=== PATIENT | female | born 1965 | race Caucasian/White ===

== ENCOUNTER → 2016-11-12 | Outpatient (CLI) | payer OTHER ==
[~2016-11-12] MED LIST: CIPRO 500MG TA500 MG PO; ELAVIL100 MG PO; LOPRESSOR 550 MG/TAB PO; LORTAB 5/500 501 TAB PO; NIFEDIPINE ER30 MG PO; NORCO 325 MG-101 TAB PO; NORVASC 10MG10 MG PO; PLAQUENIL 200M200 MG PO; PRAVACHOL 40MG40 MG PO; PREDNISONE 5MG5 MG PO; PRINIVIL20 MG PO; PROCARDIA XL90 MG PO; PYRIDIUM200 M1 PO; ULTRAM 50MG TAB50 MG PO
== END ==
LOC: MC.RAD 13:28
DX: N64.4 Mastodynia (principal)

== ENCOUNTER 2017-03-30 15:26 | Emergency (ER) | payer SELFPAY ==
[~2017-03-30] VITALS: Ht 139.7 cm; Wt 51.8 kg
[2017-03-30 15:28] VITALS: TEMP 99.8
[2017-03-30 16:20] LABS: BASO # 0.1 (0.0-0.2); BASO % 0.4 % (0.0-2.0); EOS # 0.1 (0.0-0.7); EOS % 0.5 % (0-4.0); GRAN # 8.8 (1.4-6.5); GRAN % 72.1 % (42.2-75.2); HEMATOCRIT 38.5 % (37.0-47.0); HEMOGLOBIN 13.1 g/dl (12.5-16.0); LYMPH # 1.9 (1.2-3.4); MEAN CELL VOLUME 91 fl (80.0-100.0); MEAN CORPUSCULAR HEMOGLOBIN 31 pg (27.0-31.0); MEAN CORPUSCULAR HGB CONC 34 g/dl (33.0-37.0); MEAN PLATELET VOLUME 9.5 fl (7.4-10.4); MONO # 1.3 (0.1-0.6); MONO % 10.6 % (1.7-9.3); PLATELET COUNT 235 K/mm3 (130-400); RED BLOOD COUNT 4.23 M/mm3 (4.10-5.30); REDCELL DISTRIBUTION WIDTH-CV 14.6 % (11.5-14.5)
[2017-03-30 16:42] LABS: ALANINE AMINOTRANSFERASE 17 U/L (9-52); ALKALINE PHOSPHATASE 94 U/L (50-136); ANION GAP 9 mmol/L (7-16); AST,SGOT 25 U/L (15-37); BILIRUBIN,TOTAL 0.7 mg/dL (0.0-1.0); BLOOD UREA NITROGEN 13 mg/dL (7-17); CALCIUM 8.8 mg/dL (8.4-10.2); CARBON DIOXIDE 23 mmol/L (22-30); CHLORIDE 105 mmol/L (98-107); CREATININE, serum 0.69 mg/dL (0.52-1.25); GLUCOSE 104 mg/dL (74-106); LIPASE 41 U/L (23-300); POTASSIUM 3.5 mmol/L (3.4-5.0); SODIUM 136 mmol/L (137-145)
[2017-03-30 16:51] LABS: INR 1.2 (0.8-3.0); PROTHROMBIN TIME 13.9 SECONDS (9.7-12.8); TROPONIN-I < 0.012 ng/mL (0.000-0.034)
[2017-03-30 16:53] LABS: PARTIAL THROMBOPLASTIN TIME 31.5 SECONDS (26.0-37.0)
[2017-03-30] MEDS ORDERED: PRINIVIL40 MG PO (16:54)
[2017-03-30 16:55] LABS: C-REACTIVE PROTEIN 16.5 mg/dL (0.0-0.9)
[2017-03-30] MEDS ORDERED: MS CONTIN 330 MG/TAB PO (16:55)
[2017-03-30] MEDS ORDERED: PROCARDIA XL 6060 MG PO (16:57)
[2017-03-30] MEDS ORDERED: PLAQUENIL 200M200 MG PO (16:58)
[2017-03-30] MEDS ORDERED: SYNTHROID 0.0.025 MG PO (16:58)
[2017-03-30] MEDS ORDERED: AMITRIPTYLINE H50 M1 PO (16:59)
[2017-03-30] MEDS ORDERED: PREDNISONE 5MG5 MG PO (16:59)
[2017-03-30] MEDS ORDERED: LEVAQUIN 5500 MG/TA1 PO (17:59)
[2017-03-30] MEDS ORDERED: PROTONIX 40MG T40 MG PO (17:59)
[2017-03-30 18:35] VITALS: BP 108/59; PULSE 109
== END 2017-03-30 19:00 | disposition home or self-care (01) ==
LOC: COL.ER 15:26
PROVIDERS: Emergency Medicine
DX: J18.9 Pneumonia, unspecified organism (principal); K44.9 Diaphragmatic hernia without obstruction or gangrene; K21.9 Gastro-esophageal reflux disease without esophagitis; E11.9 Type 2 diabetes mellitus without complications; I10 Essential (primary) hypertension; F17.210 Nicotine dependence, cigarettes, uncomplicated; Z87.39 Personal history of other diseases of the musculoskeletal system and connective tissue; Z79.52 Long term (current) use of systemic steroids
CPT/HCPCS: J1720; J2270; J2405; J7030; Q9967

== ENCOUNTER → 2017-07-22 | Outpatient (CLI) | payer SELFPAY ==
[~2017-07-22] MED LIST changes: +AMITRIPTYLINE H50 M1 PO; +LEVAQUIN 5500 MG/TA1 PO; +MS CONTIN 330 MG/TAB PO; +PRINIVIL40 MG PO; +PROCARDIA XL 6060 MG PO; +PROTONIX 40MG T40 MG PO; +SYNTHROID 0.0.025 MG PO
[2017-07-22 15:17] LABS: COLLECTION METHOD CLEAN CATCH
[2017-07-22 15:28] LABS: BASO # 0.1 (0.0-0.2); BASO % 0.6 % (0.0-2.0); EOS # 0.2 (0.0-0.7); EOS % 1.9 % (0-4.0); GRAN # 4.7 (1.4-6.5); HEMATOCRIT 40.7 % (37.0-47.0); HEMOGLOBIN 13.5 g/dl (12.5-16.0); LYMPH # 2.4 (1.2-3.4); LYMPH % 30.5 % (20.0-51.0); MEAN CELL VOLUME 92 fl (80.0-100.0); MEAN CORPUSCULAR HEMOGLOBIN 31 pg (27.0-31.0); MEAN CORPUSCULAR HGB CONC 33 g/dl (33.0-37.0); MEAN PLATELET VOLUME 9.3 fl (7.4-10.4); MONO # 0.6 (0.1-0.6); MONO % 7.6 % (1.7-9.3); PLATELET COUNT 309 K/mm3 (130-400); RED BLOOD COUNT 4.43 M/mm3 (4.10-5.30); REDCELL DISTRIBUTION WIDTH-CV 14.1 % (11.5-14.5)
[2017-07-22 15:35] LABS: PH 6 (5-8); URINE APPEARANCE Hazy; URINE BACTERIA None Seen /hpf; URINE BILIRUBIN Negative (NEGATIVE); URINE BLOOD 2+ (NEGATIVE); URINE COLOR Red; URINE GLUCOSE 1+ (NEGATIVE); URINE KETONE Negative (NEGATIVE); URINE LEUKOCYTE ESTERASE Negative (NEGATIVE); URINE NITRATE Negative (NEGATIVE); URINE PROTEIN(semi-quant) 2+ (NEGATIVE); URINE RBC >50 /hpf; URINE UROBILINOGEN Negative (NEGATIVE); URINE WBC >50 /hpf
[2017-07-22 15:37] LABS: ALBUMIN 3.7 gm/dL (3.5-5.0); BILIRUBIN,TOTAL 0.4 mg/dL (0.0-1.0); CALCIUM 8.9 mg/dL (8.4-10.2); CREATININE, serum 0.73 mg/dL (0.52-1.25); POTASSIUM 3.5 mmol/L (3.4-5.0); TOTAL PROTEIN 8.5 gm/dL (6.4-8.2)
== END ==
LOC: COL.LAB 14:45
PROVIDERS: Family Medicine
DX: R31.9 Hematuria, unspecified (principal); M32.9 Systemic lupus erythematosus, unspecified

== ENCOUNTER → 2017-09-04 | Outpatient (CLI) | payer OTHER | LOC: COL.RAD 08-28 12:00 | DX: N32.89 Other specified disorders of bladder (principal) ==

== ENCOUNTER 2017-09-14 11:49 | Inpatient (IN) | payer SELFPAY ==
[~2017-09-14] VITALS: Ht 149.9 cm; Wt 56.4 kg
[2017-12-09] VITALS (9 sets, daily range): BP systolic 93–120; BP diastolic 47–76; PULSE 78–93; TEMP 97.5–98.5
[2017-12-09] MEDS ORDERED: PRILOSEC 20MG20 MG PO (13:27)
[2017-12-10 00:35] VITALS: BP 105/50; PULSE 76; TEMP 98.5
[2017-12-10 04:30] VITALS: BP 122/60; PULSE 65; TEMP 98
[2017-12-10 11:59] VITALS: BP 135/71; PULSE 53; TEMP 98.5
[2017-12-10 17:14] VITALS: BP 110/58; PULSE 92; TEMP 98.3
[2017-12-10 19:49] VITALS: BP 109/65; PULSE 88; TEMP 97.9
[2017-12-11 00:08] VITALS: BP 103/57; PULSE 67; TEMP 98.2
[2017-12-11 03:21] VITALS: BP 109/62; PULSE 76; TEMP 98
[2017-12-11 09:30] VITALS: BP 126/69; PULSE 105; TEMP 97.3
[2017-12-11 12:12] VITALS: BP 126/81; PULSE 118; TEMP 98
== END 2017-12-11 14:30 | disposition home or self-care (01) | DRG 658 ==
LOC: SDCO 09-23 15:00 → SURG 12-09 11:06 → SDCO 12-09 11:06 → EDSTATUS 12-09 15:00 → SDCO 12-09 15:00 → SURG 12-09 16:30
PROVIDERS: Urology
PROC: 0TBB8ZZ Excision of Bladder, Via Natural or Artificial Opening Endoscopic (ICD-10-PCS; principal; 2017-12-09 13:00)
PROC: 0T768DZ Dilation of Right Ureter with Intraluminal Device, Via Natural or Artificial Opening Endoscopic (ICD-10-PCS; 2017-12-09 13:00)
PROC: 0TBC8ZX Excision of Bladder Neck, Via Natural or Artificial Opening Endoscopic, Diagnostic (ICD-10-PCS; 2017-12-09 13:00)
PROC: BT14YZZ Fluoroscopy of Kidneys, Ureters and Bladder using Other Contrast (ICD-10-PCS; 2017-12-09 13:00)
DX: D41.4 Neoplasm of uncertain behavior of bladder (principal); I25.10 Atherosclerotic heart disease of native coronary artery without angina pectoris; I10 Essential (primary) hypertension; M32.10 Systemic lupus erythematosus, organ or system involvement unspecified; I73.00 Raynaud's syndrome without gangrene; F17.210 Nicotine dependence, cigarettes, uncomplicated; R31.0 Gross hematuria; E11.9 Type 2 diabetes mellitus without complications
CPT/HCPCS: OP; C1769; C2617; J0690; J1100; J2270; J2405; J2704; J3010; J3480; J7030; J7120; J7512; Q9967

== ENCOUNTER → 2017-09-28 | Outpatient (CLI) | payer OTHER | LOC: COL.VAS 09:30 | DX: I08.1 Rheumatic disorders of both mitral and tricuspid valves (principal) ==

== ENCOUNTER 2018-02-17 07:02 | Day surgery (SDC) | payer SELFPAY ==
[2018-02-17] VITALS (11 sets, daily range): BP systolic 101–115; BP diastolic 49–68; PULSE 74–89; TEMP 97.3–98.3
[~2018-02-17] VITALS: Ht 149.9 cm; Wt 55.2 kg
[~2018-02-17 07:02] MED LIST changes: +PRILOSEC 20MG20 MG PO
--- NOTE | 2018-02-17 08:16 | NUR ---
Anesthesia notified of blood sugar 76. Verbalized understanding no changes to care at this time.
--- NOTE | 2018-02-17 12:44 | NUR ---
Patient alert and oriented, see assessment. Phillips catheter patent and draining clear yellow urine. CBI infusing at a slow rate. No c/o pain or discomfort.
--- NOTE | 2018-02-17 19:52 | NUR ---
Pt in bed resting watching TV, family in room with Pt, completed shift assessments with no significant findings, CBI running at a very slow rate draining yellow clear fluid, left Pt call light in reach, bed in lowest position.
[2018-02-18 00:45] VITALS: BP 103/52; PULSE 73; TEMP 98.1
[2018-02-18 04:48] VITALS: BP 158/97; PULSE 63; TEMP 98.7
--- NOTE | 2018-02-18 05:10 | NUR ---
Pt slept during the night, CBI has been clamped off for several hours without any bloody drainage, no C/O pain during the night, VS have been stable.
[2018-02-18 07:04] VITALS: BP 119/62; PULSE 60; TEMP 97.7
--- NOTE | 2018-02-18 09:00 | NUR ---
Patient is resting comfortably. Her family is at bedside. No complaints of pain. Phillips to dependent drainage. Urine is yellow and clear. CBI is clamped. No other changes at this time. Call light within reach.
--- NOTE | 2018-02-18 10:04 | NUR ---
Pt teaching done with and daughter translating as pt reports does not speak tamazight. Printed information provided from [facility] on medication. Consent signed and witnessed. Phillips cath drained and clamped. Mitomycin verified correct with Krystyna Winters LPN by comparing printed label with orders. Mitomycin instilled using chemotherapy precautions, Signage posted, precautions reviewed with family and pt. Pt has now completed the first hour with turns q15min and reports is doing well.
--- NOTE | 2018-02-18 11:11 | NUR ---
Pt has completed 2 hour dwell time of mitomycin and morgan was drained and bladder flushed with 200ml of CBI. Pt bladder emptied of 300 ml blue, clear urine. Morgan ballon was emptied of 30ml and morgan catheter was discontinued without issue. Beatriz care provided and stat lock removed. Pt tolerated the procedure well. Chemotherapy precautions were followed and remain in place. Report to Krystyna Winters LPN.
[2018-02-18 11:48] VITALS: BP 128/59; PULSE 76; TEMP 98.3
--- NOTE | 2018-02-18 15:00 | NUR ---
Patient is discharging home. She did not make it to 6 cups but has voided over 1000ml since the morgan came out. Urine remains yellow and clear. Discharge instructions discussed with patient and her family. Copies of discharge instructions sent with patient. Patient has a follow up scheduled with Dr Trejo. She already has her prescriptions at home as well. All belongings packed up and sent with patient. Patient walked out with Dalila PERDOMO.
== END 2018-02-18 15:10 | disposition home or self-care (01) ==
LOC: SDCO 07:02 → SURG 10:22 → SDCO 02-18 15:10
DX: C67.9 Malignant neoplasm of bladder, unspecified (principal); N30.21 Other chronic cystitis with hematuria; L92.3 Foreign body granuloma of the skin and subcutaneous tissue; E11.9 Type 2 diabetes mellitus without complications; F17.210 Nicotine dependence, cigarettes, uncomplicated; Z79.899 Other long term (current) drug therapy; I10 Essential (primary) hypertension; I73.00 Raynaud's syndrome without gangrene; M32.9 Systemic lupus erythematosus, unspecified; M34.9 Systemic sclerosis, unspecified; B02.29 Other postherpetic nervous system involvement; Z87.01 Personal history of pneumonia (recurrent); K21.9 Gastro-esophageal reflux disease without esophagitis; G89.29 Other chronic pain; M30.3 Mucocutaneous lymph node syndrome [Kawasaki]
CPT/HCPCS: OP; C1769; J0690; J1720; J2270; J2405; J2704; J3010; J7030; J7512; J9280

== ENCOUNTER 2018-05-03 11:47 | Emergency (ER) | payer SELFPAY ==
[~2018-05-03] VITALS: Ht 157.5 cm; Wt 68.2 kg
[2018-05-03 12:22] LABS: HEMATOCRIT 37.9 % (37.0-47.0); HEMOGLOBIN 11.7 g/dl (12.5-16.0); MEAN CELL VOLUME 85 fl (80.0-100.0); MEAN CORPUSCULAR HEMOGLOBIN 26 pg (27.0-31.0); MEAN CORPUSCULAR HGB CONC 31 g/dl (33.0-37.0); MEAN PLATELET VOLUME 8.8 fl (7.4-10.4); PLATELET COUNT 330 K/mm3 (130-400); RED BLOOD COUNT 4.47 M/mm3 (4.10-5.30); REDCELL DISTRIBUTION WIDTH-CV 17.6 % (11.5-14.5)
[2018-05-03 12:33] LABS: ALANINE AMINOTRANSFERASE < 6 U/L (9-52); ALBUMIN 3.9 gm/dL (3.5-5.0); ALKALINE PHOSPHATASE 102 U/L (50-136); ANION GAP 11 mmol/L (7-16); AST,SGOT 25 U/L (15-37); BILIRUBIN,TOTAL 0.2 mg/dL (0.0-1.0); BLOOD UREA NITROGEN 17 mg/dL (7-17); CALCIUM 8.9 mg/dL (8.4-10.2); CARBON DIOXIDE 19 mmol/L (22-30); CHLORIDE 111 mmol/L (98-107); CREATININE, serum 0.96 mg/dL (0.52-1.25); GLUCOSE 94 mg/dL (74-106); LIPASE 87 U/L (23-300); MAGNESIUM 1.7 mg/dL (1.6-2.3); PHOSPHOROUS 4.7 mg/dL (2.5-4.5); POTASSIUM 3.8 mmol/L (3.4-5.0); SODIUM 141 mmol/L (137-145); TOTAL PROTEIN 8.4 gm/dL (6.4-8.2)
[2018-05-03 12:48] LABS: TROPONIN-I < 0.012 ng/mL (0.000-0.035)
[2018-05-03 13:00] LABS: ANISOCYTOSIS 1+; BAND 26 % (0-10); LYMPHOCYTE 12 % (20.0-51.0); NEUTROPHILS 61 % (42.0-75.2); PLATELET ESTIMATE NORMAL (NORMAL)
[2018-05-03 13:39] VITALS: TEMP 102.1
[2018-05-03 14:12] LABS: COLLECTION METHOD CLEAN CATCH
[2018-05-03 14:24] LABS: MUCOUS Present /lpf; PH 5 (5-8); SQUAMOUS EPITHELIAL None Seen /hpf; URINE APPEARANCE Clear; URINE BACTERIA None Seen /hpf; URINE BILIRUBIN Negative (NEGATIVE); URINE BLOOD Negative (NEGATIVE); URINE COLOR Yellow; URINE GLUCOSE Negative (NEGATIVE); URINE KETONE Negative (NEGATIVE); URINE LEUKOCYTE ESTERASE Negative (NEGATIVE); URINE NITRATE Negative (NEGATIVE); URINE PROTEIN(semi-quant) Negative (NEGATIVE); URINE RBC 0-2 /hpf; URINE UROBILINOGEN Negative (NEGATIVE)
[2018-05-03 15:30] VITALS: BP 120/75; PULSE 116
== END 2018-05-03 15:56 | disposition short-term general hospital (02) ==
LOC: COL.ER 11:47
PROVIDERS: Emergency Medicine
DX: A41.9 Sepsis, unspecified organism (principal)
CPT/HCPCS: J0692; J1720; J3370; J7030; J7050; Q9967

== ENCOUNTER → 2018-08-10 | Outpatient (CLI) | payer OTHER | LOC: MC.RAD 13:37 | DX: Z12.31 Encounter for screening mammogram for malignant neoplasm of breast (principal) ==

== ENCOUNTER 2022-02-27 08:00 | Outpatient (RCR) | payer SELFPAY ==
[2022-02-09 08:05] VITALS: BP 118/74; PULSE 77; TEMP 98.2
[2022-02-11 08:30] VITALS: BP 90/41; PULSE 116; TEMP 98
[2022-02-11 08:31] LABS: HEMOGLOBIN 10.8 g/dl (12.5-16.0); MEAN CELL VOLUME 89 fl (80.0-100.0); MEAN CORPUSCULAR HEMOGLOBIN 28 pg (27-31); MEAN CORPUSCULAR HGB CONC 32 g/dl (33.0-37.0); MEAN PLATELET VOLUME 9.3 fl (7.4-10.4); PLATELET COUNT 315 K/mm3 (130-400); RED BLOOD COUNT 3.81 M/mm3 (4.10-5.30); REDCELL DISTRIBUTION WIDTH-CV 14.4 % (11.5-14.5)
[2022-02-11 08:42] LABS: HEMATOCRIT 33.9 % (37.0-47.0)
[2022-02-11 08:48] LABS: ALBUMIN 3.2 gm/dL (3.5-5.0); BILIRUBIN,TOTAL 0.3 mg/dL (0.2-1.2); C-REACTIVE PROTEIN 0.28 mg/dL (0.00-0.50); CALCIUM 8.8 mg/dL (8.4-10.2); CREATININE, serum 0.83 mg/dL (0.57-1.11); POTASSIUM 3.7 mmol/L (3.5-4.5); TOTAL PROTEIN 8.2 gm/dL (6.2-8.1)
[2022-02-11 08:56] LABS: ERYTHROCYTE SEDIMENTATION RATE 71 mm/hr (0-30)
[2022-02-12 08:30] VITALS: BP 118/54; PULSE 76; TEMP 97.2
[2022-02-13 08:19] VITALS: BP 100/54; PULSE 104; TEMP 97.8
[2022-02-14 08:50] VITALS: BP 108/60; PULSE 105; TEMP 98
[2022-02-15 08:46] VITALS: BP 105/50; PULSE 82; TEMP 97.9
[2022-02-16 08:35] VITALS: BP 116/55; PULSE 100; TEMP 97.7
[2022-02-17 08:30] VITALS: BP 99/50; PULSE 97; TEMP 97.4
[2022-02-17 08:37] LABS: HEMOGLOBIN 10.7 g/dl (12.5-16.0); MEAN CELL VOLUME 88 fl (80.0-100.0); MEAN CORPUSCULAR HEMOGLOBIN 29 pg (27-31); MEAN CORPUSCULAR HGB CONC 33 g/dl (33.0-37.0); MEAN PLATELET VOLUME 9.8 fl (7.4-10.4); PLATELET COUNT 285 K/mm3 (130-400); REDCELL DISTRIBUTION WIDTH-CV 14.5 % (11.5-14.5)
[2022-02-17 08:40] LABS: HEMATOCRIT 32.7 % (37.0-47.0)
[2022-02-17 08:56] LABS: ALBUMIN 3.2 gm/dL (3.5-5.0); BILIRUBIN,TOTAL 0.2 mg/dL (0.2-1.2); C-REACTIVE PROTEIN 0.42 mg/dL (0.00-0.50); CALCIUM 8.7 mg/dL (8.4-10.2); CREATININE, serum 0.83 mg/dL (0.57-1.11); POTASSIUM 3.5 mmol/L (3.5-4.5); TOTAL PROTEIN 8.3 gm/dL (6.2-8.1)
[2022-02-17 09:02] LABS: ERYTHROCYTE SEDIMENTATION RATE 65 mm/hr (0-30)
[2022-02-18 08:29] VITALS: BP 124/53; PULSE 98; TEMP 97.9
[2022-02-19 08:36] VITALS: BP 109/51; PULSE 88; TEMP 97.7
[2022-02-20 08:40] VITALS: BP 115/50; PULSE 110; TEMP 97.8
[2022-02-21 08:48] VITALS: BP 99/54; PULSE 96; TEMP 97.7
[2022-02-22 08:37] VITALS: BP 87/56; PULSE 63; TEMP 97.9
[2022-02-23 08:33] VITALS: BP 109/49; PULSE 116; TEMP 98.3
[2022-02-24 08:25] VITALS: BP 99/78; PULSE 107; TEMP 98.3
[2022-02-24 08:55] LABS: BASO # 0.1 K/mm3 (0.0-0.2); BASO % 0.7 % (0.0-2.0); EOS # 0.3 K/mm3 (0.0-0.7); EOS % 2.9 % (0.0-4.0); GRAN # 6.2 K/mm3 (1.4-6.5); GRAN % 65.8 % (42.2-75.2); HEMOGLOBIN 10.7 g/dl (12.5-16.0); LYMPH # 2.2 K/mm3 (1.2-3.4); LYMPH % 22.9 % (20.0-51.0); MEAN CELL VOLUME 88 fl (80.0-100.0); MEAN CORPUSCULAR HEMOGLOBIN 28 pg (27-31); MEAN CORPUSCULAR HGB CONC 32 g/dl (33.0-37.0); MONO # 0.7 K/mm3 (0.1-0.6); MONO % 7.5 % (1.7-9.3); PLATELET COUNT 241 K/mm3 (130-400); RED BLOOD COUNT 3.81 M/mm3 (4.10-5.30); REDCELL DISTRIBUTION WIDTH-CV 14.6 % (11.5-14.5)
[2022-02-24 08:57] LABS: HEMATOCRIT 33.5 % (37.0-47.0)
[2022-02-24 09:12] LABS: BILIRUBIN,TOTAL 0.3 mg/dL (0.2-1.2); C-REACTIVE PROTEIN 4.15 mg/dL (0.00-0.50); CALCIUM 8.5 mg/dL (8.4-10.2); CREATININE, serum 0.72 mg/dL (0.57-1.11); POTASSIUM 3.3 mmol/L (3.5-4.5)
[2022-02-24 09:30] LABS: ERYTHROCYTE SEDIMENTATION RATE 81 mm/hr (0-30)
[2022-02-25 08:39] VITALS: BP 105/44; PULSE 114; TEMP 97.6
[2022-02-26 08:26] VITALS: BP 125/66; PULSE 118; TEMP 98
[~2022-02-27] VITALS: Ht 149.9 cm; Wt 46.2 kg
[~2022-02-27 08:00] MED LIST changes: +CUBICIN 500MG500 MG IV; +NITRO-BID22 TOP; +PRILOTC PO; +PRINIVIL10 MG PO; -PRINIVIL40 MG PO
[2022-02-27 08:39] VITALS: BP 112/66; PULSE 119; TEMP 98.4
--- NOTE | 2022-02-27 10:10 | NUR ---
Pt discharge via ambulatory after PICC line removal.
== END 2022-02-27 10:12 | disposition home or self-care (01) ==
LOC: EUO 08:00
PROVIDERS: Internal Medicine
DX: L03.012 Cellulitis of left finger (principal); L03.011 Cellulitis of right finger; M86.142 Other acute osteomyelitis, left hand; M86.141 Other acute osteomyelitis, right hand
CPT/HCPCS: J0878